=== PATIENT | female | born 1960 ===

== ENCOUNTER 2020-01-25 11:00 | Outpatient (CLI) | payer MEDICARE, MEDICAID | END 2020-01-25 11:01 | disposition home or self-care (01) | LOC: SLR 11:00 | PROVIDERS: ATTEND Otolaryngology | DX: G47.33 Obstructive sleep apnea (adult) (pediatric) (principal); I10 Essential (primary) hypertension; E66.9 Obesity, unspecified | CPT/HCPCS: 95810 ==

== ENCOUNTER 2020-02-07 11:00 | Outpatient (CLI) | payer MEDICARE, MEDICAID | END 2020-02-07 11:01 | disposition home or self-care (01) | LOC: SLR 11:00 | PROVIDERS: ATTEND Otolaryngology | DX: G47.33 Obstructive sleep apnea (adult) (pediatric) (principal); R40.0 Somnolence; E66.9 Obesity, unspecified | CPT/HCPCS: 95811 ==

== ENCOUNTER 2020-04-25 14:13 | Emergency (ER) | payer MEDICARE ==
[2020-04-25 14:23] VITALS: BP 142/85
[2020-04-25] MEDS ORDERED: KETOROLAC 30 MG/1 ML INJ IM ONE (14:56)
[2020-04-25] MEDS ORDERED: KETOROLAC 60 MG/2 ML INJ ONE (14:57)
--- NOTE | 2020-04-25 14:59 | Emergency Department Report ---
ED General Adult HPI - General Chief complaint: Extremity Problem,Nontraumatic Stated complaint: BACK/RT HIP PAIN Time Seen by Provider: 04/25/20 14:48 Source: patient Mode of arrival: Ambulatory Limitations: No Limitations - History of Present Illness Initial comments: 59-year-old -Prydeinig female patient presents with complaints of right lower back pain x3 days. 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 She denies any direct trauma to her back, numbness/tingling/weakness in her limbs, loss of bladder/bowel control, or difficulty moving her leg. She rates her current pain as a 10/10 in severity and states she has not tried any [id number] medications for her symptoms. She also reports history of fibromyalgia and chronic right hip pain, however states this pain is different. Patient reports the pain worsens with ambulation and bending of the spine. - Related Data Previous Rx's Medication Instructions Recorded Last Taken Type Acetaminophen/Codeine [Tylenol 1 tab PO Q8H PRN #6 tab 04/25/20 Unknown Rx /Codeine # 3 tab] Prednisone [predniSONE 5 mg (6-Day 5 mg PO .TAPER #1 tab.ds.pk 04/25/20 Unknown Rx Pack, 21 Tabs)] methOCARBAMOL [Robaxin TAB] 1,500 mg PO Q8H PRN #30 tablet 04/25/20 Unknown Rx Allergies Allergy/AdvReac Type Severity Reaction Status Date / Time No Known Allergies Allergy Unverified 04/25/20 14:23 ED Review of Systems ROS: Stated complaint: BACK/RT HIP PAIN Other details as noted in HPI Constitutional: denies: chills, fever, malaise, weakness Cardiovascular: denies: chest pain Endocrine: denies: excessive sweating Gastrointestinal: denies: hematochezia Genitourinary: denies: hematuria Musculoskeletal: back pain. denies: joint swelling Skin: denies: change in color Neurological: denies: numbness, paresthesias, abnormal gait ED Past Medical Hx - Past Medical History Previous Medical History?: Yes Hx Arthritis: Yes Additional medical history: Fibromyalgia - Social History Smoking Status: Unknown if ever smoked Substance Use Type: None - Medications Home Medications: Home Medications Medication Instructions Recorded Confirmed Last Taken Type Acetaminophen/Codeine [Tylenol 1 tab PO Q8H PRN #6 tab 04/25/20 Unknown Rx /Codeine # 3 tab] Prednisone [predniSONE 5 mg (6-Day 5 mg PO .TAPER #1 tab.ds.pk 04/25/20 Unknown Rx Pack, 21 Tabs)] methOCARBAMOL [Robaxin TAB] 1,500 mg PO Q8H PRN #30 tablet 04/25/20 Unknown Rx ED Physical Exam - General Limitations: No Limitations General appearance: alert, in no apparent distress - Head Head exam: Present: atraumatic, normocephalic - Eye Eye exam: Present: normal appearance. Absent: scleral icterus - Respiratory Respiratory exam: Absent: respiratory distress - Cardiovascular Cardiovascular Exam: Present: regular rate - GI/Abdominal GI/Abdominal exam: Present: soft. Absent: distended, tenderness, guarding, rebound, rigid - Extremities Exam Extremities exam: Present: normal inspection, full ROM - Back Exam Back exam: Present: full ROM, paraspinal tenderness (Right lower lumbar/sacroiliac). Absent: vertebral tenderness - Neurological Exam Neurological exam: Present: alert, oriented X3. Absent: normal gait (Ambulating with a walker) - Psychiatric Psychiatric exam: Present: normal affect, normal mood - Skin Skin exam: Present: warm, dry, intact, normal color. Absent: rash, cyanosis, ecchymosis ED Course Vital Signs 04/25/20 14:21 Temperature 98 F Pulse Rate 94 H Respiratory 16 Rate Blood Pressure 142/85 [Right] O2 Sat by Pulse 100 Oximetry ED Medical Decision Making - Medical Decision Making 59-year-old -Prydeinig female patient presents with complaints of right lower back pain x3 days. 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 She denies any direct trauma to her back, numbness/tingling/weakness in her limbs, loss of bladder/bowel control, or difficulty moving her leg. She rates her current pain as a 10/10 in severity and states she has not tried any [id number] medications for her symptoms. She also reports history of fibromyalgia and chronic right hip pain, however states this pain is different. Patient reports the pain worsens with ambulation and bending of the spine. No vertebral tenderness to palpation or deformity noted on exam. History and exam appear consistent with low back strain. Patient given Toradol here in ED and prescription for Robaxin. Recommend follow-up with PCP in 3 days. Also recommend icing of area and stretching. Strict return precautions were discussed in detail with patient who verbalized understanding. Critical care attestation.: If time is entered above; I have spent that time in minutes in the direct care of this critically ill patient, excluding procedure time. ED Disposition Clinical Impression: Low back strain Qualifiers: Encounter type: initial encounter Qualified Code(s): S39.012A - Strain of muscle, fascia and tendon of lower back, initial encounter Disposition: TO HOME OR SELFCARE Is pt being admited?: No Condition: Stable Instructions: Low Back Sprain or Strain Rehab-[facility] Prescriptions: Prednisone [predniSONE 5 mg (6-Day Pack, 21 Tabs)] 5 mg PO .TAPER #1 tab.ds.pk methOCARBAMOL [Robaxin TAB] 1,500 mg PO Q8H PRN #30 tablet PRN Reason: muscle spasm/tightness Acetaminophen/Codeine [Tylenol /Codeine # 3 tab] 1 tab PO Q8H PRN #6 tab PRN Reason: Pain , Severe (7-10) Referrals: PRIMARY CARE, [Referring] - 2-3 Days
== END 2020-04-25 15:10 | disposition home or self-care (01) ==
LOC: ED 14:13
DX: S39.012A Strain of muscle, fascia and tendon of lower back, initial encounter (principal); M19.90 Unspecified osteoarthritis, unspecified site; Z79.899 Other long term (current) drug therapy; X58.XXXA Exposure to other specified factors, initial encounter; Y93.89 Activity, other specified; Y92.89 Other specified places as the place of occurrence of the external cause; Y99.8 Other external cause status
CPT/HCPCS: 96372; 99282; J1885